=== PATIENT | female | born 1960 | race Caucasian/White ===

== ENCOUNTER 2018-10-23 11:39 | Emergency (ER) | payer BC ==
[2018-10-23 12:18] LABS: #Basophils 0.1 thou/uL (0.0-0.2); #Eosinphils 0.1 thou/uL (0.0-0.7); #Lymphocytes 1.7 thou/uL (1.20-3.40); #Monocytes 0.7 thou/uL (0.11-0.59); %Basophils 0.9 % (0.0-1.0); %Eosinophils 1.1 % (0.0-10.0); %Lymphocytes 22.6 % (21.0-51.0); %Neutrophils 66.4 % (42.0-75.0); Hemoglobin 12.3 g/dL (12.0-16.0); Mean Corpuscular HGB CONC 34.1 g/dL (32.0-36.0); Mean Corpuscular Hemoglobin 34.6 pg (27.0-31.0); Mean Platelet Volume 6.5 fL (7.4-10.4); Platelet Count 250 thou/uL (130-400); RBC Distribution Width 12.1 % (11.5-14.5); Red Blood Cell (RBC) Count 3.55 mill/uL (4.20-5.40); White Blood Cell (WBC) Count 7.6 thou/uL (4.8-10.8)
--- NOTE | 2018-10-23 12:20 | CT ---
CT head noncontrast HISTORY: Seizure. FINDINGS: No comparison. There is no evidence of acute intracranial hemorrhage or infarct. The ventri cles appear normal in size, shape and position. There is no mass effect or shift of midline structures. Visualized paranasal sinuses remain well aerated. IMPRESSION: No acute intracranial abnormalities are demonstrated.
--- NOTE | 2018-10-23 12:29 | RAD ---
XR Chest 1 View Portable HISTORY: Fall, chest pain COMPARISON: None FINDINGS: The heart size is normal. The lungs are well expanded without focal areas of consolidation, pneumothorax or pleural effusions. IMPRESSION: No radiographic evidence of acute cardiopulmonary process.
[2018-10-23 12:43] LABS: ALT (SGPT) 17 U/L (8-55); AST (SGOT) 19 U/L (5-34); Albumin 3.8 g/dL (3.5-5.0); Alkaline Phosphatase 67 U/L (40-150); Anion Gap 13 mmol/L (10-20); BUN (Urea Nitrogen) 8 mg/dL (9.8-20.1); Bilirubin, Total 0.2 mg/dL (0.2-1.2); CK (CPK) 65 U/L (29-168); Calc. Creatinine Clearance 0 mL/min (70-130); Calcium 8.8 mg/dL (7.8-10.44); Carbon Dioxide 25 mmol/L (22-29); Chloride 105 mmol/L (98-107); Estimated GFR-MDRD 71; Globulin 2.2 g/dL (2.4-3.5); Glucose 99 mg/dL (70-105); Sodium 139 mmol/L (136-145)
== END 2018-10-23 14:35 | disposition home or self-care (01) ==
LOC: ERS 11:39
DX: R56.9 Unspecified convulsions (principal); F41.9 Anxiety disorder, unspecified; F32.9 Major depressive disorder, single episode, unspecified
CPT/HCPCS: 36415; 70450; 71045; 80053; 82550; 84484; 85025; 93005

== ENCOUNTER 2018-10-23 16:50 | Observation (INO) | payer BC ==
[2018-10-23] MEDS ORDERED: levETIRAcetam In NaCl (Iso-Os) 1,000 MG in Premix Bag 1 BAG IVPB SCH (18:30)
[2018-10-23] MEDS ORDERED: Ondansetron ODT 4 MG TAB PO PRN (21:02)
[2018-10-23] MEDS ORDERED: Acetaminophen 325 MG TAB PO PRN (21:02)
[2018-10-23] MEDS ORDERED: Acetaminophen 650 MG Suppository PR PRN (21:02)
[2018-10-23] MEDS ORDERED: Ondansetron PF 4 MG/2 ML Vial IVP PRN (21:02)
[2018-10-23 21:51] VITALS: BMI 28.5
--- NOTE | 2018-10-23 23:19 | HP ---
PRIMARY CARE DOCTOR: Out of town physician. CODE STATUS: Full code. TIME OF EVALUATION: 7:30 p.m. CHIEF COMPLAINT: Seizures x2. HISTORY OF PRESENT ILLNESS: A 57-year-old female patient with no significant past medical history other than acid reflux, hyperlipidemia, and asthma. The patient came to the hospital after having two episodes of seizure. The very first one was a generalized tonic-clonic seizure when the patient was at home and she reported that she just blacked out. The mother reported she had generalized tonic-clonic movement. She recovered after a few minutes and has had a postictal state with biting of tongue. The patient was seen in the ER. She went back home and was just feeling very weak, came back and had another seizure. The patient received Keppra and awaiting for Neurology. Her symptoms were severe with no clear triggers. No alleviating factors. She is better during my examination at bedside. REVIEW OF SYSTEMS: CONSTITUTIONAL: No fever, chills generalized weakness. RESPIRATORY: No cough, sputum production, or shortness of breath. CARDIOVASCULAR: No chest pain or palpitations. GASTROINTESTINAL: No nausea. No vomiting, diarrhea, or abdominal pain. PATIENT RELATIONS LIAISON: The patient has seizure. No dizziness, headache, or feeling lightheaded. GENITOURINARY: No burning on urination. EXTREMITIES: No leg swelling. All other systems were reviewed and negative except for the findings mentioned above. PAST MEDICAL HISTORY: As mentioned in the HPI. FAMILY HISTORY: The patient is adopted. PAST SURGICAL HISTORY: The patient no surgical history. PSYCHIATRIC HISTORY: Anxiety and depression. SOCIAL HISTORY: Drinks everyday, less than 5 drinks per day. No drug use. No smoking history. ALLERGIES: NO KNOWN DRUG ALLERGIES. REPORTED MEDICATIONS: Nexium. PHYSICAL EXAMINATION: VITAL SIGNS: On presentation, blood pressure 167/82 with heart rate of 108, respiratory rate was 18, temperature was 98.3 with oxygen saturation of 95%. GENERAL APPEARANCE: The patient is alert, oriented, not in acute distress. HEENT: Eyes normal. ENT: Moist oral mucosa. Sclerae anicteric. No JVD. RESPIRATORY: Bilateral air entry. No rales no wheezes. Symmetric expansion. CARDIOVASCULAR: Normal rate, regular rhythm. No murmurs. No gallop. No edema. ABDOMEN: Soft. Normal bowel sounds. MUSCULOSKELETAL: Baseline range of motion and strength. No tenderness. SKIN: Warm and intact. No pallor. No rash. No redness. Peripheral pulses are present. Capillary refill seems to be intact. NEUROLOGIC: No evidence of any new focal weakness. Baseline speech. Cranial nerves seems to be intact. PSYCHIATRIC: The patient is in good mood. No anxiety. Optimal judgment. DIAGNOSTIC DATA: Brain CT was reviewed. The patient had no acute intracranial abnormalities. Chest x-ray was reviewed. The patient has no radiographic evidence of acute cardiopulmonary process. Labs were reviewed. The patient has glucose 134, white count 7.6, hemoglobin 12.3, MCV 101, platelet count 250. Chemistry; sodium 139, potassium 4.0, chloride 105, carbon dioxide 25, anion gap 13, BUN 8, creatinine 0.82, GFR 71, glucose 99. LFTs were negative. Albumin 3.8. Serum total protein 6.0. ASSESSMENT AND PLAN: The patient will be placed in the hospital with the following medical problems: 1. New onset of seizure x2. Unclear etiology. The patient has been started on Keppra due to recurrence of episodes. Neurology has been consulted. We will follow recommendations. 2. History of gastroesophageal reflux disease, reconcile home medications. 3. Deep venous thrombosis prophylaxis. Job ID: [id number]
[2018-10-24 05:08] LABS: #Basophils 0.1 thou/uL (0.0-0.2); #Eosinphils 0.1 thou/uL (0.0-0.7); #Lymphocytes 1.8 thou/uL (1.20-3.40); #Neutrophils 5.9 thou/uL (1.40-6.50); %Basophils 0.9 % (0.0-1.0); %Eosinophils 0.6 % (0.0-10.0); %Lymphocytes 20.7 % (21.0-51.0); %Monocytes 11.1 % (0.0-10.0); %Neutrophils 66.8 % (42.0-75.0); Hemoglobin 11.6 g/dL (12.0-16.0); Mean Corpuscular HGB CONC 34.3 g/dL (32.0-36.0); Mean Corpuscular Hemoglobin 35.2 pg (27.0-31.0); Mean Platelet Volume 6.8 fL (7.4-10.4); Platelet Count 232 thou/uL (130-400); RBC Distribution Width 12.2 % (11.5-14.5); Red Blood Cell (RBC) Count 3.28 mill/uL (4.20-5.40); White Blood Cell (WBC) Count 8.8 thou/uL (4.8-10.8)
[2018-10-24 05:34] LABS: Anion Gap 11 mmol/L (10-20); BUN (Urea Nitrogen) 7 mg/dL (9.8-20.1); Calc. Creatinine Clearance 110 mL/min (70-130); Calcium 8.5 mg/dL (7.8-10.44); Carbon Dioxide 23 mmol/L (22-29); Chloride 110 mmol/L (98-107); Estimated GFR-MDRD 84; Glucose 95 mg/dL (70-105); Potassium 3.4 mmol/L (3.5-5.1); Sodium 141 mmol/L (136-145)
[2018-10-24] MEDS ORDERED: Cetirizine HCl 10 MG TAB PO PRN (07:23)
[2018-10-24] MEDS ORDERED: Non-Formulary Item 1 EACH (Fluticasone Propionate [Flonase Allergy Relief] 1 SPRAY) EA NARE PRN (07:23)
--- NOTE | 2018-10-24 07:24 | PDOC.PN ---
- Subjective Encounter Start Date: 10/24/18 Encounter Start Time: 14:00 Subjective: Patient feeling fine today. No more seizures. No headache. No shakiness. - Objective Resuscitation Status - Order Detail: 10/23/18 21:02 Resuscitation Status Routine Resuscitation Status: FULL: Full Resuscitation MAR Reviewed: Yes Vital Signs & Weight: Vital Signs (12 hours) Temp Pulse Resp BP Pulse Ox 10/24/18 04:00 99.0 F 68 18 139/84 96 10/24/18 00:00 98.7 F 75 18 135/73 97 Weight Weight 182 lb 4.8 oz I&O: 10/23/18 10/24/18 10/25/18 06:59 06:59 06:59 Intake Total 240 Balance 240 Result Diagrams: 10/24/18 04:44 10/24/18 04:44 Additional Labs: Accuchecks 10/23/18 16:55 POC Glucose 134 H Phys Exam - Physical Examination Constitutional: NAD HEENT: moist MMs Respiratory: no wheezing, no rales, no rhonchi Cardiovascular: RRR, no significant murmur Gastrointestinal: soft, positive bowel sounds Neurological: non-focal, moves all 4 limbs Psychiatric: normal affect, A&O x 3 Dx/Plan (1) New onset seizure Code(s): R56.9 - UNSPECIFIED CONVULSIONS Status: Acute Comment: x2, generalized tonic-clonic with tongue biting, started on Keppra, CT negative, will check MRI and neuro consult, ? relationship to alcohol (2) Macrocytic anemia Code(s): D53.9 - NUTRITIONAL ANEMIA, UNSPECIFIED Status: Acute Comment: possibly related to alcohol intake, also low on Vit B12 (3) GERD (gastroesophageal reflux disease) Code(s): K21.9 - GASTRO-ESOPHAGEAL REFLUX DISEASE WITHOUT ESOPHAGITIS Status: Chronic Comment: pepcid while in the hospital (4) Generalized anxiety disorder Code(s): F41.1 - GENERALIZED ANXIETY DISORDER Status: Chronic Comment: continue home anxiolytic (5) Major depression Code(s): F32.9 - MAJOR DEPRESSIVE DISORDER, SINGLE EPISODE, UNSPECIFIED Status : Chronic Comment: continue home medication (6) Vitamin B12 deficiency Code(s): E53.8 - DEFICIENCY OF OTHER SPECIFIED B GROUP VITAMINS Status: Acute Comment: possibly due to intrinsic factor deficiency, will give IM injection and start daily supplement, f/u for response with PCP. (7) Alcohol use Code(s): Z78.9 - OTHER SPECIFIED HEALTH STATUS Status: Acute Comment: reviewed recommendations of no more than one glass of wine daily in women to prevent liver damage or other health problems - Plan cont current plan of care, DVT proph w/lovenox * . - Discharge Day Encounter end time: 14:20
[2018-10-24] MEDS ORDERED: Loratadine 10 MG TAB PO PRN (07:26)
[2018-10-24] MEDS ORDERED: Fluticasone Propionate Nasal Spray 16 gm Bottle NASAL PRN (07:28)
[2018-10-24] MEDS ORDERED: Potassium Chloride 20 MEQ TAB PO SCH (07:30)
[2018-10-24] MEDS ORDERED: Venlafaxine HCl XR 150 MG CAP PO SCH (09:00)
[2018-10-24] MEDS ORDERED: Enoxaparin Sodium 40 MG/0.4 ML SYRINGE SC SCH (09:00)
[2018-10-24] MEDS ORDERED: NORETHINDRONE ACET PO SCH (09:00)
[2018-10-24] MEDS ORDERED: levETIRAcetam 500 MG TAB PO SCH (09:00)
[2018-10-24] MEDS ORDERED: ESTRADIOL PO SCH (09:00)
[2018-10-24] MEDS ORDERED: ALPRAZolam 0.5 MG TAB PO SCH (09:00)
[2018-10-24] MEDS ORDERED: Famotidine 20 MG TAB PO SCH (09:00)
[2018-10-24 10:40] LABS: Clarity Clear (Clear)
[2018-10-24 10:41] LABS: Glucose, Urine (Dipstick) Negative (Negative); Leukocyte Trace (Negative); Nitrite Negative (Negative); Protein, Urine (Dipstick) Negative (Neg-Trace); Urobilinogen 0.2 mg/dL (0.2-1.0)
[2018-10-24 10:42] LABS: Bilirubin Negative (Negative); Blood, Urine Negative (Negative)
[2018-10-24 10:43] LABS: Bacteria/HPF None Seen HPF (None Seen); Hyaline Casts/LPF NONE SEEN LPF (0-3 Hyaline); RBC/HPF None Seen HPF (0-3); Squamous Epithelial 0-3 HPF (0-3); WBC/HPF 0-3 HPF (0-3)
[2018-10-24 10:45] LABS: Amphetamine Not Detected (NotDetected); Barbiturates Screen Not Detected (NotDetected); Benzodiazepine Screen Not Detected (NotDetected); Cocaine Metabolite Screen Not Detected (NotDetected); Medtox Control Line Valid? VALID (VALID); Medtox Reader # READER 4; Methadone Not Detected (NotDetected); Methamphetamine Not Detected (NotDetected); Opiate Screen Not Detected (NotDetected); Oxycodone Screen Not Detected (NotDetected); Phencyclidine (PCP) Not Detected (NotDetected); THC/Cannabinoid Screen Not Detected (NotDetected); Tricyclic Screen Not Detected (NotDetected)
--- NOTE | 2018-10-24 13:27 | MRI ---
MRI BRAIN WITHOUT CONTRAST: HISTORY: Seizure COMPARISON: None CORRELATION: CT scan from 10/23/2018. FINDINGS: No restricted diffusion is seen. There are multiple foci of T2 prolongation in the periventricular wh ite matter, consistent with chronic small vessel ischemic disease. The ventricular size is appropriate and the basilar cisterns are patent. No evidence of acute infarct, hemorrhage, midline shift or abnormal extra-axial fluid collections is seen. . The visualized paranasal sinuses and mastoid air cells are well-aerated. IMPRESSION: No evidence of acute intracranial process.
[2018-10-24] MEDS ORDERED: Cyanocobalamin 1000 MCG/ML VIAL IM SCH (14:00)
[2018-10-24 16:12] VITALS: BP 146/74; TEMP 98.2
--- NOTE | 2018-10-24 21:56 | CON ---
DATE OF CONSULTATION: 10/24/2018 CONSULTING PHYSICIAN: Hospitalist Service. IMPRESSION: New onset seizure. PLAN: 1. Keppra 500 mg twice daily. 2. The patient can be discharged home with followup in [place]. HISTORY OF PRESENT ILLNESS: Ms. Obrien is a 58-year-old woman who was visiting family when she suddenly lost consciousness and went into a generalized seizure. She was brought to the emergency room for evaluation. She returned to baseline and her workup at that time was unremarkable including a CT of the brain and lab work. They released her and she went to a local restaurant to get something to eat. They got back into the car and then she suddenly had her 2nd seizure. There was no aura prior to the onset. She awoke in the emergency room. She was subsequently given Keppra and admitted for observation. She is back to her baseline. She denies any past history of head injury, meningitis, or encephalitis. PAST MEDICAL HISTORY: Otherwise unremarkable other than some reflux, hyperlipidemia and asthma. FAMILY HISTORY: Noncontributory. ALLERGIES: NONE REPORTED. SOCIAL HISTORY: No tobacco use or illicit drug use. She drinks some wine in the evening. REVIEW OF SYSTEMS: A 10 system review of systems is otherwise negative. PHYSICAL EXAMINATION: GENERAL: She is a healthy-appearing middle-aged woman, no distress. VITAL SIGNS: Blood pressure was 139/86, pulse 87, respirations 18, and temperature 98.3. HEENT: Pupils equal and reactive. Conjunctivae clear. Oropharynx clear. There was some trauma to the side of her tongue. NECK: Supple. No lymphadenopathy. EXTREMITIES: No cyanosis. NEUROLOGIC: She is alert and appropriate. Her speech is fluent and clear. Cranial nerves are intact. Motor exam shows equal strength. There is no tremor or dysmetria. She can walk independently. IMAGING: MRI of the brain was reviewed and appears normal. Toxicology screen was negative. SUMMARY: This is a middle-aged woman with new onset seizures. Given the repeat event and lack of provoking factors, I would agree with continuing Keppra. She can follow up with a local neurologist. Job ID: [id number]
--- NOTE | 2018-10-25 04:24 | DIS ---
DATE OF ADMISSION: 10/23/2018 DATE OF DISCHARGE: 10/24/2018 PRIMARY CARE PHYSICIAN: Out of town in the [place] area. REASON FOR ADMISSION: New onset seizures x2. DIAGNOSES AT DISCHARGE: 1. New onset seizure disorder, controlled on Keppra. 2. Macrocytic anemia. 3. Vitamin B12 deficiency. 4. Alcohol abuse minor. 5. Gastroesophageal reflux disease. 6. Generalized anxiety disorder. 7. Major depression. PROCEDURES: MRI of the brain showing no evidence of acute intracranial process. CONSULTATION: Neurology, Dr. Saucedo. SUMMARY OF HOSPITAL COURSE: This is a 58-year-old white female with past medical history of acid reflux, hyperlipidemia, and asthma. She came into the hospital after sudden onset of seizure. She never had any seizures before, had a spontaneous seizure without any instigators. Did have some tongue biting. She was seen in the emergency room, had a negative CT of the brain, and she was discharged home. She when got some lunch and she and her were driving back by the hospital. She had another seizure in the car, so they pulled back into the hospital parking lot, and she was evaluated again in the emergency room. She was loaded with Keppra and admitted to the hospital. We did do an MRI on her while she was in the hospital, which was negative for any lesions. No evidence of stroke. No evidence of tumors. The patient had no more seizure activity after being loaded with Keppra. She had no symptoms. No headaches. No neurologic signs or symptoms. Dr. Saucedo did evaluate her and recommended continuing the Keppra 500 mg twice a day and following up with her neurologist in the [facility]. The patient was doing much better and eager to go home and so she is being discharged home this evening. The patient was found to be mildly anemic with elevated MCV. Vitamin B12 and folate were checked. Folate was normal. Vitamin B12 was depressed at half the lower range, so she was given an intramuscular injection of vitamin B12 and then started on daily supplementation. She is to follow up in [place] with her doctor. She also was noted to drink 4 to 5 glasses of wine daily, which is also possible instigator for her macrocytosis. I did delinquency counselor her that she should drink one or less servings of alcohol per day as higher doses are put her at risk for things like cirrhosis of the liver and other medical problems. DISCHARGE MANAGEMENT: Location: Discharged home. Activity: As tolerated. Diet: Regular diet. Followup: With either Dr. Saucedo or if they get back to [facility] with her own neurologist in the next 1 to 2 weeks. DISCHARGE MEDICATIONS: 1. Keppra 500 mg twice a day, 60 tablets dispensed. 2. Vitamin B12 1000 mcg daily, 30 tablets dispensed. 3. Continue alprazolam 1 tablet twice a day. 4. Cetirizine 10 mg daily as needed. 5. Flonase one spray each nostril daily as needed. 6. Venlafaxine extended release 150 mg daily. 7. Estradiol/norethindrone acetate 0.1 mg/1 mg one tablet daily. Job ID: [id number]
[2018-10-25] MEDS ORDERED: Cyanocobalamin (Vitamin B-12) 1,000 MCG TAB PO SCH (09:00)
== END 2018-10-24 20:02 | disposition home or self-care (01) ==
LOC: ERS 16:50 → 2SE 19:26
PROVIDERS: ADMIT Internal Medicine; ATTEND Internal Medicine
DX: G40.409 Other generalized epilepsy and epileptic syndromes, not intractable, without status epilepticus (principal); D53.9 Nutritional anemia, unspecified; E53.8 Deficiency of other specified B group vitamins; F10.10 Alcohol abuse, uncomplicated; K21.9 Gastro-esophageal reflux disease without esophagitis; F32.9 Major depressive disorder, single episode, unspecified; F41.1 Generalized anxiety disorder; E78.5 Hyperlipidemia, unspecified; J45.909 Unspecified asthma, uncomplicated; Z79.899 Other long term (current) drug therapy
CPT/HCPCS: 36415; 36416; 70450; 70551; 71045; 80048; 80053; 80306; 81003; 81015; 82550; 82607; 82746; 84484; 85025; 93005; 96365; 96372; G0378; J1650; J1953